=== PATIENT | female | born 1955 | race Caucasian/White ===

== ENCOUNTER → 2020-05-31 14:35 | Outpatient (REF) | payer MEDICARE, SELFPAY | LOC: ANHLAB 14:35 | PROVIDERS: Visit Provider Nurse Practitioner | DX: L72.0 Epidermal cyst (principal) | CPT/HCPCS: 88304 ==

== ENCOUNTER 2023-11-20 10:49 | Outpatient (CLI) | payer MEDICARE, SELFPAY ==
--- NOTE | ~2023-11-20 | MR_ITS ---
MRI of the left knee Clinical history: Pain Technique: Coronal proton density and proton density-weighted images, sagittal proton-density and T2 fat-sat images, and axial proton-density fat-saturated images were acquired. Findings: Anterior and posterior cruciate ligaments are intact. Medial collateral ligament and the la teral collateral ligament complex are intact. Popliteus tendon is intact. Medial and lateral menisci are intact, without evidence of tear. There is a nondisplaced acute fracture the fibular head. Remaining bone marrow signals are unremarkab le. Articular cartilage is well preserved in the patellofemoral and lateral compartment. There is mod erate chondral thinning along the medial femoral condyle. Extensor mechanism is intact. No joint effusion or Dick's cyst. Impression: Acute nondisplaced fibular head fracture. Moderate chondral thinning of the medial femoral condyle. Reviewed, dictated and finalized at [facility]. Impression: Acute nondisplaced fibular head fracture. Moderate chondral thinning of the medial femoral condyle.
== END 2023-11-20 10:50 ==
LOC: GOSHIMG 10:51
PROVIDERS: PCP Orthopaedic Surgery; Visit Provider Orthopaedic Surgery
DX: S72.435A Nondisplaced fracture of medial condyle of left femur, initial encounter for closed fracture (principal); M94.262 Chondromalacia, left knee; X58.XXXA Exposure to other specified factors, initial encounter
CPT/HCPCS: 73721

== ENCOUNTER 2024-10-22 08:58 | Outpatient (CLI) | payer MEDICARE, SELFPAY ==
--- OUTSIDE RECORDS SUMMARY | 2024-10-22 09:32 | XMS_ITS | Patient Health Record ---
Author Organization [address] Address [address] [place] [phone] Care Team Providers Care Circulation Clerk Name Role Phone Gabriele Vargas Unavailable [phone] Allergies No Known Allergies Reason For Referral No Information Medications Medication SIG (Take, Route, Frequency, Duration) Notes Start Date End Date Status Vitamin D3 25 MCG (1000 UT) 1 capsule Orally Once a day Active Omeprazole 20 MG 1 capsule 1/2 to 1 hour before morning meal Orally Once a day Active Metoprolol Tartrate 25 MG 1 tablet with food Orally Twice a day Active Hadlima PushTouch 40 MG/0.4ML inject 40mg subq every 2 weeks Subcutaneous L40.0 PLAQUE PSORIASIS 08/12/2024 Active Levothyroxine Sodium 25 MCG 1 tablet in the morning on an empty stomach Orally Once a day Active Calcium 500 + D Acti ve Hadlima PushTouch 40 MG/0.4ML Inject 80mg (0.8ml) at once then inject 40mg (0.4ml) on day 8 and 22 then inject 40mg (0.4ml) every 2 weeks thereafter Subcutaneous L40.0 PLAQUE PSORIASIS 08/12/2024 Active Social History Tobacco Use: Social History Observation Description Date Details (start date - stop date) Never Smoker NA - NA Sex Assigned At : Social History Observation Description Sex Assigned At Female Tobacco Use/Smoking Question Answer Notes Tobacco use: nonsmoker Problems Problem Type SNOMED Code ICD Code Onset Dates Problem Status W/U Status Risk Notes Problem Psoriasis vulgaris (292316848) Psoriasis vulgaris (L40.0) Active confirmed Problem Psoriatic arthritis (204040828) Psoriatic arthritis (L40.50) Active confirmed Problem Hyperthyroidism (83077862) Hyperthyroidism (E05.90) Active confirmed Problem Arthritis (4240402) Arthritis (M19.90) Active confirmed Problem Hypertension (89626413) Hypertension (I10) Active confirmed Problem Acid reflux (223534315) Acid reflux (K21.9) Active confirmed Vital Signs Height-cm 167.64 cm 07/17/2024 Weight-kg 80.29 kg 07/17/2024 Height 66 in 07/17/2024 Weight 177 lbs 07/17/2024 BMI 28.57 kg/m2 07/17/2024 Encounters Encounter Location Date Provider Diagnosis [address] [place], [place] [id number] 07/17/2024 Gabriele Vargas Psoriasis vulgaris L40.0 ; Other intermediate project manager (current) drug therapy Z79.899 and Routine health maintenance Z00.00 [address] [facility] [place], [place] [id number] 07/22/2024 Gabriele Vargas Psoriasis vulgaris L40.0 [address] [facility] [place], [place] [id number] 08/12/2024 Gabriele Vargas Psoriasis vulgaris L40.0 Assessments Encounter Date Diagnosis (ICD Code) Assessment Notes Treatment Notes Treatment Clinical Notes Section Notes 07/17/2024 Psoriasis vulgaris (ICD-10 - L40.0) Ms. Crowe is a 69 year-old female with psoriasis, currently managed by Dr. Miguelina Oleary. At this time, patient will stop Otezla and start Humira. Patient will be monitored intermediate project manager for symptom improvement, side effects, and disease progression. RX Humira Starter & Maintenance Received Samples/Loading Dose: No New Start: Patient has generalized psoriasis and isn't a candidate for other systemic therapies. Patient has been unresponsive to aggressive topical therapy. Plan to begin Humira. Treatment History: BSA (07/15/24): 10% PGA: 3.0- Moderate ; NRS: 5.0 Labs: Pending per site Hepatitis B Surface Antigen: Hepatitis B CORE Antibody: QuantiFERON-TB Gold: Not a candidate for traditional systemic therapy options such as methotrexate, cyclosporine, acitretin due to hypertension and potential drug-drug interactions. 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 Psoriasis is chronic in nature with periods of remission and flares. Flares can be triggered by stress, infections (group A strep), certain medications, and alcohol. The risks of Humira include but are not limited to immunosuppressio n, and serious infections. Monitoring is required including a PPD at baseline and must alert us or the primary physician if symptoms of infection or other concerning signs are noted. 07/22/2024 Psoriasis vulgaris (ICD-10 - L40.0) 08/12/2024 Psoriasis vulgaris (ICD-10 - L40.0) 07/17/2024 Other residential (current) drug therapy (ICD-10 - Z79.899) When on high-risk medications, patient must be vigilant about any new symptoms and understand the risks and side effects of their treatment. Biologic/small molecule medications can have significant side effects that may require blood test monitoring on a regular basis. Patient to contact providers for fever, chills, night sweats, malaise, abdominal pain, weakness, fatigue, headaches, infections, difficulty breathing or persistent cough, new skin lesions, or other unusual symptoms. 07/17/2024 Routine health maintenance (ICD-10 - Z00.00) https://www.cdc. gov/vaccines/carmella edules/downloads /adult/adult-com bined-schedule.p df Plan Of Treatment No Information Medical (General) History Medical History History ICD Code Hypertension I10 Hyperthyroidism E05.90 Acid reflux K21.9 Arthritis M19.90 Hospitalization History Reason Date(Month/Year) ER visit for bronchitis 05/2024
--- OUTSIDE RECORDS SUMMARY | 2024-10-22 09:32 | XMS_ITS ---
Author Organization [address] [facility] Address [address] [place] [phone] Care Team Providers Care Dividing Machine Operator Helper Name Role Phone Gabriele Vargas Unavailable [phone] Medications Medication SIG (Take, Route, Frequency, Duration) Notes Start Date End Date Status Humira-Psoriasis/Uveit Starter 80 MG/0.8ML & 40MG/0.4ML Inject 80mg (0.8ml) at once then inject 40mg (0.4ml) on day 8 and 22 then inject 40mg (0.4ml) every 2 weeks thereafter 07/22/2024 Active Humira (2 Pen) 40 MG/0.4ML Inject 40mg (1 pen) under the skin every 2 weeks for 28 days 07/22/2024 09/16/2024 Active Social History Sex Assigned At : Social History Observation Description Sex Assigned At Female Encounters Encounter Location Date Provider Diagnosis [address] [place], [place] [id number] 07/22/2024 Gabriele Vargas Psoriasis vulgaris L40.0 Assessments Encounter Date Diagnosis (ICD Code) Assessment Notes Treatment Notes Treatment Clinical Notes Section Notes 07/22/2024 Psoriasis vulgaris (ICD-10 - L40.0) Plan Of Treatment Medication Medication Name Sig Start Date Stop Date Notes Humira-Psoriasis/Uveit Starter 80 MG/0.8ML & 40MG/0.4ML Inject 80mg (0.8ml) at once then inject 40mg (0.4ml) on day 8 and 22 then inject 40mg (0.4ml) every 2 weeks thereafter 07/22/2024 Humira (2 Pen) 40 MG/0.4ML Inject 40mg ( 1 pen) under the skin every 2 weeks for 28 days 07/22/2024 09/16/2024 Progress Notes * Alejandro VERAB: 3 (69 yo F)Acc No.[id number]:07/22/2024 Patient: Indu SALDIVAR :1955 A ge:69 Y S ex:Female Address:[address] [place] [id number] * Refills Start Humira-Psoriasis/Uveit Starter Auto-injector Kit, 80 MG/0.8ML & 40MG/0.4ML, 1 Kit, Inject 80mg (0.8ml) at once then inject 40mg (0.4ml) on day 8 and 22 then inject 40mg (0.4ml) every 2 weeks thereafter, Refills=0 Start Humira (2 Pen) Auto-injector Kit, 40 MG/0.4ML, 1 Kit, Inject 40mg (1 pen) under the skin every 2 weeks, 28 days, Refills=1 * true * Date: Generated for Courtney ng/Wichog/eTransmitting on: 0 10/22/2024 09:32 AM CDT
--- OUTSIDE RECORDS SUMMARY | 2024-10-22 09:32 | XMS_ITS | Continuity of Care Document ---
Author Organization [facility] Address [address] [place] [address] Phone Care Team Providers Care Spring Repairer Helper Hand Name Role Phone Garrett GODFREY CNP, Keli Unavailable Unavaila ble Allergies, Adverse Reactions, Alerts Substance Reaction Status Criticality TRAMADOL HCL Active No Information acetaminophen Active No Information Medications Medication Instructions Dosage Effective Dates (start - stop) Status Comments Tirosint 25 mcg capsule take 1 capsule by oral route every day for hyperthyoidism - Active METOPROLOL ER 50MG TAB TAKE ONE TABLET B Y MOUTH ONCE DAILY - Active betamethasone dipropionate 0.05 % topical cream apply by topical route every day a thin layer to the affected area as needed - Active Calcium 600 + D(3) 600 mg (1,500)-200 unit tablet take 1 tablet daily by mouth - Active Zantac 150 mg tablet take 1 tablet by or al route every day - Active Procedures Procedure Date OFFICE/OUTPATIENT VISIT, EST OFFICE/OUTPATIENT VISIT, EST OFFICE/OUTPATIENT VISIT, EST OFFICE/OUTPATIENT VISIT, EST OFFICE/OUTPATIENT VISIT, EST URINALYSIS NONAUTO W/O SCOPE OFFICE/OUTPATIENT VISIT, EST OFFICE/OUTPATIENT VISIT, EST OFFICE/OUTPATIENT VISIT, EST OFFICE/OUTPATIENT VISIT, NEW Advance Directives Directive Yes / No Effective Date File Name No Information Encounters Encounter Description Practice Location Reason(s) For Visit Diagnoses Date Provider Providers Copied on Encounter [facility], [address] [place] [address], [facility], tel:[phone] [place] [address] No Information Garrett Michelle. [address] [place] [address], [facility], . tel: [phone] [facility], [address] [place] [address], [facility] hospital, [facility], tel:[phone] [facility] No Information Garrett Michelle. [address] [place] [address], [facility], . tel:[phone] [facility], [address] [place] [address], [facility]iatric hospital, [facility], tel:[phone] [facility] No Information Garrett Martinez. [address] [place] [address], [facility], . tel: [phone] OFFICE/OUTPA TIENT VISIT, [facility], [address] [place] [address], [facility], tel:[phone] [facility] YEARLY CHECKUP (chief complaint) HTN/ Refill meds (chief complaint) Hyperlipidemia , unspecifiedHyp othyroidism, unspecifiedEss ential (primary) hypertension Garrett Martinez. [address] [place] [address], [facility], . tel: [phone] [place] [address], [address] [place] [address], [facility], tel:[phone] [facility] Encounter for screening mammogram for malignant neoplasm of breast No Information OFFICE/OUTPA TIENT VISIT, [facility], [address] [place] [address], [facility], [place] tel:[phone] [facility] thyroid (chief complaint) Hypothyroidism Essential (primary) hypertension 6 No Information OFFICE/OUTPA TIENT VISIT, [facility], [address] [place] [address], [facility] hospital[facility], tel: [phone] [facility] f/u on labs (chief complaint) Disorder of thyroid, unspecified 6 No Information [facility], [address] [place] [address], [facility] hospital[facility], tel: [phone] [facility] Disorder of thyroid, unspecifiedEss ential (primary) hypertensionHy perlipidemia, unspecified 6 Nilsa Fontenot. [address] [place] [address], [facility], [place]. tel:[phone] OFFICE/OUTPA TIENT VISIT, [facility], [address] [place] [address], [facility], [place] tel: [phone] [facility] f/u labs (chief complaint) Thyroid dysfunctionHyp erlipidemiaHyp ertension, Benign Feb- 5 No Information OFFICE/OUTPA TIENT VISIT, [facility], [address] [place] [address], [facility], [place] tel: [phone] [facility] f/u labs (chief complaint) DepressionHype rtension, BenignWeight gain abnormalHyperl ipidemiaThyroi d dysfunction October- 5 No Information OFFICE/OUTPA TIENT VISIT, [facility], [address] [place] [address], [facility], [place] tel: [phone] [facility] UTI (chief complaint) HEMATURIA NOSDepressionH ypertension, BenignReflux esophagitisUTI ScreeningScree arielle mammogramWeigh t gain abnormal Sep-0 5 No Information OFFICE/OUTPA TIENT VISIT, [facility], [address] [place] [address], [facility], [place] tel: [phone] [facility] Sore throat (chief complaint) Sinusitis Fe-2 5 Diamante [address]er. [address] [place], [address], [place]. tel:[phone] OFFICE/OUTPA TIENT VISIT, [facility], [address] [place] [address], [facility], [place] tel: [phone] [facility] cold symptoms (chief complaint) Cough Dec-0 4 Garrett Martinez. [address] [place] [address], [facility], [place]. tel:[phone] OFFICE/OUTPA TIENT VISIT, [facility], [address] [place] [address], [address], tel:[phone] [facility] URI (chief complaint) Hypertension, BenignDepressi onPain in jointReflux esophagitisUpp er Respiratory Infection, Acute Aug-3 0-201 2 Carlos Vela. [address] [place] [address], [address], [place]. tel:[phone] Family History Family Member Type Diagnosis Age At Onset Sister Problem (finding) malignant neoplasm of t hyroid Mother Problem (finding) hypertension Father Problem (finding) muscular dystrophy Maternal grandfather Problem (finding) dementia Maternal grandmother Problem (finding) diabetes mellitus in first degree relative Sister Problem (finding) muscular dystrophy Mother Problem (finding) osteoarthritis Brother Problem (finding) muscular dystrophy Father Problem (finding) cancer of colon Brother Problem (finding) alcoholism Payers Payer name Insurance type Covered constitution party ID Authoriza tion(s) No Information Social History Type Description Quantity Date Captured Comments Sex Female Smoking Status No Information Chief Complaint And Reason For Visit No Information Reason For Referral Reason For Referral No Information Plan Of Treatment Date Type Action Status Goal ECG. Due on due Goal Urinalysis due Goal Colonoscopy. Due on 017 due Referral Ordered: Screeningmammographydigital ordered Referral Ordered: CHEST X-RAY - 2 View Frontal Lateral ordered Future Order: Lab Order CMP ([id number]), Or dered on: Ordered Future Order: Lab Order CBC ([id number]), Or dered on: Ordered Future Order: Lab Order LIPID PA LUBNA ([id number]), Ordered on: Ordered Future Order: Lab Order TSH ([id number]), Or dered on: Ordered History Of Present Illness Encounter Date Complaint History Of Prese nt Illness HTN/ Refill meds Pt here to see Provider to have meds refilled. States she is currently out of BP med and pharmacy gave her an extesion. Denies any problems. YEARLY CHECKUP YEARLY CHECKUP (comments) PMHX: HTN, reflux esophagitis, High TSH, depression (no longer being treated), hyperlipidemiaPSH: Hysterectomy 32 years ago ( noncancerous reasons), tubal ligation, open chinedu, appendectomy, catract bilat Vax-refuses Millie- 08/23/16 BMD- none Colonoscopy- due Eye care-visit every year- due in couple of months Dental care- three weeks ago (every 6 months) thyroid Patient is here to discuss her blood tests regarding her thyroid.She has been taking 25mcg of synthroid.Jun 2015 TSH was 3.0today 2.8Has lost 7# purposely since last seenUTD on mammogramHyst, no need for papUTD colonoscopy f/u on labs Pt here to see Hoa pacheco for follow up of lab studies. Pt states she is having no problems. Was recently started on thyroid medication.Works out at [employer] 3 x week. Encouraged healthy eating .Bp 126/68 today.UTD eye exam, dental, and mammogramHx of cholycestectomy, but continues to see Dr. Valencia for bile issues ,which he explained to her, is the cause of her elevated alk phos. f/u labs Pt here to see Hoa pacheco for follow up after having lab studies done. Pt states she has allergy problem first thing each morning and again during evening. Pt also has a small scabbed area to the right side of scalp. States she has had for mere 2 months. Smaller than previously and slightly tender to touch,Has joined [employer] [place], and is now exercising 4 or 5 times a week with .Has lost 6 lbs since she started.Feeling stronger.Stopped taking SSRI's, doing well.TSH has been slowly going up, now 4.16Lipids all WNL. f/u labs Pt here to see hoa pacheco to get results of lab studies and plan of care.feeling well. has questions about wellness center in [place].Labs:Trigs elevated, TSH borderline high.All others nl. UTI (comments) Pt was [facility], started going to [facility], but didnt like long waits at walk in clinic.Hx of depression, gerd, htn, joint pain.Due for labs and mammogram UTI Presenting/Initi al symptoms include abdominal pain, burning, dribbling, dysuria, fever, frequency, hematuria, hesitancy, nausea, nocturia and urgency. Associated symptoms include abdominal pain, dysuria, fatigue, fever, flank pain, frequency, hesitancy, nausea, retention, urgency and vomiting. Additional information: Pressure, painful urination, low back pain, threw up bile this am. Sore throat Onset: 1 Day. Th e severity of the problem is moderate. The problem has worsened. The patient denies aggravating factors. The patient denies relieving factors. Associated symptoms include chills/rigors, cough (productive with yellow sputum), headache, nasal congestion, otalgia and pharyngitis. cold symptoms Onset: 3 days ag o. The patient describes the cough as productive (of brown sputum). There are no aggravating factors. There are no relieving factors. Associated symptoms include chills, cough, dyspnea, fatigue, hoarseness, nasal congestion, post-nasal drainage, sinus pressure and scratchy throat and chest congestion. Functional Status Date Functional Assessmen t No Information Instructions Date Instruction Additional Infor binta Increase activity. Related to Es sential (primary) hypertension Monitor blood pressu re at home if > 140/90 RTC Related to Essential (primary) hypertension Follow a low sodium diet. Relate d to Essential (primary) hypertension Increase activity. Related to Hy perlipidemia, unspecified Recheck labs in 1 year Related t o Hypothyroidism, unspecified Contine Medication at current do se Related to Hypothyroidism, unspecified Fasting lab in 6 months Related to Hyperlipidemia, unspecified Follow a low cholesterol diet. R elated to Hyperlipidemia, unspecified Stop smoking. Related to Hyper lipidemia, unspecified Follow a low sodium, low fat, low sugar diet Related to Essential (primary) hypertension Increase activity. Related to Es sential (primary) hypertension continue on same dos e of med, recheck yearly Related to Hypothyroidism reviewed labs, TSH W NL. will stay on same dose and recheck in 6 months. Related to Disorder of thyroid, unspecified Increase activity. Related to Hy pertension, Benign continue with exercise program R elated to Hyperlipidemia Increase activity. Related to Hy perlipidemia will start pt on lev o 25 mcg, and retest 4 months Related to Thyroid dysfunction continue with weight loss Relate d to Hypertension, Benign Increase activity. Related to Hy pertension, Benign discussed weaning off paxil Rela sari to Depression Follow a low sodium diet. Relate d to Hypertension, Benign discussed exercise p true, and change in diet Related to Weight gain abnormal Increase activity. Related to Hy perlipidemia discussed low animal fat diet Re lated to Hyperlipidemia Follow a low sodium diet. Relate d to Hyperlipidemia TSH borderline high , will recheck TSH and lipids in 6 months( February) Related to Thyroid dysfunction Elevate head of bed prior to sle ep Related to Reflux esophagitis Discussed prevention, meds order ed Related to UTI Healthy diet, exerci se, weight loss encouraged Related to Hypertension, Benign Follow a low sodium diet. Relate d to Hypertension, Benign Avoid provocative fo ods: citrus, alcohol, coffee, chocolate, mints Related to Reflux esophagitis Eat smaller meals, n o eating three hours prior to bedtime Related to Reflux esophagitis labs ordered Related to Scree arielle Discussed posibility of weaning off SSRI's, as depression has resolved. Related to Depression Increase activity. Related to Hy pertension, Benign Instructions given f or sinus irrigation. pt ed handout given Related to Sinusitis Patient instructed o n use of saline sprays. Related to Sinusitis Vaporizer at bedtime . Cont with Mucinex Related to Cough ABX as discussed Related to Coug h Will call with results Related t o Cough Assessments Type Assessment Date No Information Patient Care Teams Name Effective Dates (start - stop) Status Members No Information
--- OUTSIDE RECORDS SUMMARY | 2024-10-22 09:32 | XMS_ITS ---
Author Organization [facility] Address [address] [place] [phone] Care Team Providers Care Supply Chain Project Manager Name Role Phone Gabriele Vargas Unavailable [phone] Medications Medication SIG (Take, Route, Frequency, Duration) Notes Start Date End Date Status Hadlima PushTouch 40 MG/0.4ML inject 40mg subq every 2 weeks Subcutaneous L40.0 PLAQUE PSORIASIS 08/12/2024 Active Hadlima PushTouch 40 MG/0.4ML Inject 80mg (0.8ml) at once then inject 40mg (0.4ml) on day 8 and 22 then inject 40mg (0.4ml) every 2 weeks thereafter Subcutaneous L40.0 PLAQUE PSORIASIS 08/12/2024 Active Social History Sex Assigned At : Social History Observation Description Sex Assigned At Female Encounters Encounter Location Date Provider Diagnosis [address] [facility] [address] [place], [place] [phone] 08/12/2024 Gabriele Vargas Psoriasis vulgaris L40.0 Assessments Encounter Date Diagnosis (ICD Code) Assessment Notes Treatment Notes Treatment Clinical Notes Section Notes 08/12/2024 Psoriasis vulgaris (ICD-10 - L40.0) Plan Of Treatment Medication Medication Name Sig Start Date Stop Date Notes Humira (2 Pen) 40 MG/0.4ML Inject 40mg/0.4ml Subcutaneous on day 8 and then every 2 weeks thereafter 07/17/2024 09/12/2024 Humira-Psoriasis/Uvei t Starter 80 MG/0.8ML & 40MG/0.4ML Inject 80mg (0.8ml) at once then inject 40mg (0.4ml) on day 8 and 22 then inject 40mg (0.4ml) every 2 weeks thereafter 07/22/2024 Hadlima PushTouch 40 MG/0.4ML inject 40mg subq every 2 weeks Subcutaneous 08/12/2024 L40.0 PLAQUE PSORIASIS Hadlima PushTouch 40 MG/0.4ML Inject 80mg (0.8ml) at once then inject 40mg (0.4ml) on day 8 and 22 then inject 40mg (0.4ml) every 2 weeks thereafter Subcutaneous 08/12/2024 L40.0 PLAQUE PSORIASIS Progress Notes * Zack VERAMariselB: 3 (69 yo F)Acc No.[id number]:08/12/2024 Patient: Indu SALDIVAR :1955 A ge:69 Y S ex:Female Address:[address] [place] [phone] * Refills Stop Humira (2 Pen) Auto-injector Kit, 40 MG/0.4ML, Subcutaneous, Inject 40mg/0.4ml, on day 8 and then every 2 weeks thereafter Stop Humira-Psoriasis/Uveit Starter Auto-injector Kit, 80 MG/0.8ML & 40MG/0.4ML, Inject 80mg (0.8ml) at once then inject 40mg (0.4ml) on day 8 and 22 then inject 40mg (0.4ml) every 2 weeks thereafter Start Hadlima PushTouch Solution Auto-injector, 40 MG/0.4ML, Subcutaneous, 3 each, Inject 80mg (0.8ml) at once then inject 40mg (0.4ml) on day 8 and 22 then inject 40mg (0.4ml) every 2 weeks thereafter, Refills=0 Start Hadlima PushTouch Solution Auto-injector, 40 MG/0.4ML, Subcutaneous, 2 each, inject 40mg subq every 2 weeks, Refills=1 * true * Date: Generated for Courtney estes/Molly/eTyoavsmitting on: 0 10/22/2024 09:32 AM CDT
--- OUTSIDE RECORDS SUMMARY | 2024-10-22 09:32 | XMS_ITS ---
Author Organization [facility] Address [address] [place] [phone] Care Team Providers Care Rn Telemetry Name Role Phone Gabriele Vargas Unavailable [phone] Allergies No Known Allergies Medications Medication SIG (Take, Route, Frequency, Duration) Notes Start Date End Date Status Vitamin D3 25 MCG (1000 UT) 1 capsule Orally Once a day Active Humira (2 Pen) 80 MG/0.8ML Inject 80mg/0 .8ml Subcutaneous into the abdomen or thigh on day 1 for 1 days 07/17/2024 07/19/2024 Active Omeprazole 20 MG 1 capsule 1/2 to 1 h our before morning meal Orally Once a day Active Metoprolol Tartrate 25 MG 1 tablet with food Orally Twice a day Active Levothyroxine Sodium 25 MCG 1 tablet in the morning on an empty stomach Orally Once a day Active Calcium 500 + D Acti ve Humira (2 Pen) 40 MG/0.4ML Inject 40mg/0 .4ml Subcutaneous on day 8 and then every 2 weeks thereafter for 28 days 07/17/2024 09/12/2024 Active Social History Tobacco Use: Social History Observation Description Date Details (start date - stop date) Never Smoker NA - NA Sex Assigned At : Social History Observation Description Sex Assigned At Female Tobacco Use/Smoking Question Answer Notes Tobacco use: nonsmoker Problems Problem Type SNOMED Code ICD Code Onset Dates Problem Status W/U Status Risk Notes Problem Psoriasis vulgaris (958724957) Psoriasis vulgaris (L40.0) Active confirmed Problem Psoriatic arthritis (525622157) Psoriatic arthritis (L40.50) Active confirmed Problem Hypertension (34870157) Hypertension (I10) Active confirmed Problem Hyperthyroidism (67652985) Hyperthyroidism (E05.90) Active confirmed Problem Acid reflux (641776111) Acid reflux (K21.9) Active confirmed Problem Arthritis (4959685) Arthritis (M19.90) Active confirmed Vital Signs Height 66 in 07/17/2024 Weight 177 lbs 07/17/2024 BMI 28.57 kg/m2 07/17/2024 Height-cm 167.64 cm 07/17/2024 Weight-kg 80.29 kg 07/17/2024 Encounters Encounter Location Date Provider Diagnosis [address] [facility] [address] [place], [place] [phone] 07/17/2024 Gabriele Vargas Psoriasis vulgaris L40.0 ; Other shelter (current) drug therapy Z79.899 and Routine health maintenance Z00.00 Assessments Encounter Date Diagnosis (ICD Code) Assessment Notes Treatment Notes Treatment Clinical Notes Section Notes 07/17/2024 Psoriasis vulgaris (ICD-10 - L40.0) Ms. Vera is a 69 year-old female with psoriasis, currently managed by Dr. Miguelina Oleary. At this time, patient will stop Otezla and start Humira. 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 [...] infection or other concerning signs are noted. 07/17/2024 Other long lines operator (current) drug therapy (ICD-10 - Z79.899) When [...] edules/downloads /adult/adult-com bined-schedule.p df Plan Of Treatment Medication Medication Name Sig Start Date Stop Date Notes Humira (2 Pen) 80 MG/0.8ML Inject 80mg/0 .8ml Subcutaneous into the abdomen or thigh on day 1 for 1 days 07/17/2024 07/19/2024 Otezla 30 MG 1 tablet Orally Twice a day Humira (2 Pen) 40 MG/0.4ML Inject 40mg/0 .4ml Subcutaneous on day 8 and then every 2 weeks thereafter for 28 days 07/17/2024 09/12/2024 Treatment Notes Assessment Notes Psoriasis vulgaris Ms. Vera is a 69 year-old female with psoriasis, currently managed by Dr. Miguelina Oleary. At this time, patient will stop Otezla and start Humira. 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 Psoriasis is chronic in nature with periods of remission and flares. Flares can be triggered by stress, infections (group A strep), certain medications, and alcohol. The risks of Humira include but are not limited to immunosuppression, and serious infections. Monitoring is required including a PPD at baseline and must alert us or the primary physician if symptoms of infection or other concerning signs are noted. Other long lines operator (current) drug therapy W hen on high-risk medications, patient must be vigilant [...] new skin lesions, or other unusual symptoms. Routine health maintenance https://www.c dc.gov/vaccines/schedules/downloa ds/adult/heiwl-gkznqybh-oagqksoz.pdf Progress Notes * Alejandro VERAB: 3 (69 yo F)Acc No.[id number]:07/17/2024 Patient: Indu SALDIVAR Provider: Jadiel Vargas NP :1955 A ge:69 Y S ex:Female Date:07/17/2024 Address:[address] [place], [place] [phone] Subjective: * Chief Complaints: * * HPI: T elemedicine: Ms. Vera is a 69 year-old female with psoriasis, currently managed by Dr. Miguelina Oleary. We will be assisting with immunologic and infectious disease monitoring in the setting of immunomodulatory therapy in consult with dermatology. She has a significant medical history of hypertension, hypothyroidism, GERD, and arthritis. The patient's psoriasis is described as flaking, itchy, red, does scale and affects her scalp and neck. It has been present for years. The patient has been aggressively treated with topical therapies to include betamethasone without relief. The patient is currently on Otezla samples. She did not qualify for assistance program and is planning on stopping Otezla and starting Humira. Of note, the patient also suffers from arthritis affecting her joints. Patient visited the ER in May 2024 for bronchitis. Patient was called to verify their medical status and their prescription status. [facility] is assisting as a specialty team in monitoring their health in consult with the patient's marketing project coordinator. Biologic/small molecule agents affect human immunology can put patients at risk for various infections and malignancies. Proper monitoring with lab tests and an updated vaccination profile can minimize these risks. A [facility] contact center team lead will be available to the patient for medication management. * Medical History: H ypertension, Hyperthyroidism, Acid reflux, Arthritis. * Hospitalization/Major Diagno stic Procedure: E R visit for bronchitis 05/2024. * Family History: N on-Contributory. * Social History: T obacco Use: T obacco Use/Smoking T obacco use: n onsmoker. D rugs/Alcohol: D o you drink alcohol?: No. * Medications: T aking Vitamin D3 25 MCG (1000 UT) Capsule 1 capsule Orally Once a day , Taking Otezla 30 MG Tablet 1 tablet Orally Twice a day , Taking Omeprazole 20 MG Capsule Delayed Release 1 capsule 1/2 to 1 hour before morning meal Orally Once a day , Taking Metoprolol Tartrate 25 MG Tablet 1 tablet with food Orally Twice a day , Taking Levothyroxine Sodium 25 MCG Tablet 1 tablet in the morning on an empty stomach Orally Once a day , Taking Calcium 500 + D , Medication List reviewed and reconciled with the patient * Allergies: N .K.D.A. Objective: * Vitals: W t:177lbs, Wt-k.29 kg, Ht: 66 in, Ht-cm: 167.64 cm, BMI:28.57Index, Body Surface Area: 1.93. Assessment: * Assessment: 1. P soriasis vulgaris - L40.0 2 . O ther shelter (current) drug therapy - Z79.899 3 . R [facility] maintenance - Z00.00 Plan: * Treatment: 2. O ther long lines operator (current) drug therapy Notes:When on high-risk medications, patient must be vigilant [...] new skin lesions, or other unusual symptoms. 3. R Open [facility] health maintenance Notes:https://www.cdc.gov/vaccines/sched ules/downloads/adult/oapxn-zmbkziji-hdevr ule.pdf * Billing Information: * Visit Code: * Procedure Codes: Care Plan Details* * Electronic signature of Maria De Jesus Vargas , SENIOR PROCESS ENGINEER-LAM on 10/22/2024 at 09:32 AM CDT Sign off status: Pending * Provider: Jadiel Vargas NP Date: 0 07/17/2024 Generated for Courtney estes/Molly/eTsimone on: 0 10/22/2024 09:32 AM CDT History and Physical Notes * HPI (History of Present Illness) Category Sub-Category Detail Notes Category Not es Telemedicine Ms. Vera is a 69 year-old female with psoriasis, currently managed by Dr. Miguelina Oleary. We will be assisting with immunologic and infectious disease monitoring in the setting of immunomodulatory therapy in consult with dermatology. She has a significant medical history of hypertension, hypothyroidism, GERD, and arthritis. The patient's psoriasis is described as flaking, itchy, red, does scale and affects her scalp and neck. It has been present for years. The patient has been aggressively treated with topical therapies to include betamethasone without relief. The patient is currently on Otezla samples. She did not qualify for assistance program and is planning on stopping Otezla and starting Humira. Of note, the patient also suffers from arthritis affecting her joints. Patient visited the ER in May 2024 for bronchitis. Patient was called to verify their medical status and their prescription status. [facility] is assisting as a specialty team in monitoring their health in consult with the patient's marketing project coordinator. Biologic/small molecule agents affect human immunology can put patients at risk for various infections and malignancies. Proper monitoring with lab tests and an updated vaccination profile can minimize these risks. A [facility] contact center team lead will be available to the patient for medication management.
--- OUTSIDE RECORDS SUMMARY | 2024-10-22 09:32 | XMS_ITS | Clinical Summary ---
Author Organization [facility] Address [address] [place] [address] Phone Care Team Providers Care Chief Unit Forester Name Role Phone Ginette Allison APRN, MARBLE INSTALLER SUPERVISOR Primary Care Provider Allergies Active Allergy Reactions Criticality Noted Date Comments Tramadol Vomiting 02/16/2020 Medications No known medications Social History Tobacco Use Types Packs/Day Years Used Date Smoking Tobacco: Never Smokeless Tobacco: Never Comments No Sex and Gender Information Value Date Recorded Sex Assigned at Not on file Legal Sex Female 11:42 PM CDT Gender Identity Not on file Sexual Orientation Not on file Last Filed Vital Signs Vital Sign Reading Time Taken Comments Blood Pressure 149/67 02/16/2020 1:15 PM CDT Pulse 64 02/16/2020 1:15 PM CDT Temperature 36.4 C (97.5 F) 02/16/2020 1:15 PM CDT Respiratory Rate 18 02/16/2020 1:15 PM CDT Oxygen Saturation 96% 02/16/2020 1:15 PM CDT Inhaled Oxygen Concentration - - Weight 72.6 kg (160 lb) 02/16/2020 1:15 PM CDT Height 170.2 cm (5' 7 ) 02/16/2020 1:15 PM CDT Body Mass Index 25.06 02/16/2020 1:15 PM CDT Plan of Treatment Not on file Insurance MEDICARE [facility] Care Teams Chief Unit Forester Relationship Specialty Start Date End Date Ginette Allison, CLASSER, MARBLE INSTALLER SUPERVISOR [address] [place] [address] PCP - General Family Medicine 02/16/20
== END 2024-10-22 08:59 | disposition home or self-care (01) ==
PROVIDERS: Visit Provider Orthopaedic Surgery
DX: M25.561 Pain in right knee (principal); M25.562 Pain in left knee; Z87.81 Personal history of (healed) traumatic fracture
CPT/HCPCS: 73564